=== PATIENT | male | born 1985 | race African-American/Black ===

== ENCOUNTER 2025-04-03 13:31 | Outpatient (CLI) | payer BC | END 2025-04-03 13:32 | disposition home or self-care (01) | LOC: CSHDTY/OP 13:31 | PROVIDERS: ATTEND Nurse Practitioner Family | DX: Z71.3 Dietary counseling and surveillance (principal) | CPT/HCPCS: 97802 ==

== ENCOUNTER 2025-06-05 13:40 | Outpatient (CLI) | payer BC | END 2025-06-05 13:41 | disposition home or self-care (01) | LOC: CSHDTY/OP 13:40 | PROVIDERS: ATTEND Nurse Practitioner Family | DX: Z71.3 Dietary counseling and surveillance (principal) | CPT/HCPCS: 97802 ==